=== PATIENT | male | born 1955 ===

== ENCOUNTER 2021-11-05 11:15 | Inpatient (IN) | payer OTHER ==
[~2021-11-05] VITALS: Ht 170.2 cm; Wt 75.5 kg
[~2021-11-05 11:15] MED LIST: COZAAR50 MG PO; LANTUS100 U/ML SC; NOVOLOG FLEX100 U/ML SC; PRAVASTATIN SOD40 MG PO
[2021-12-02] VITALS (14 sets, daily range): BP systolic 121–149; BP diastolic 43–81; PULSE 56–87; TEMP 97.3–99
[2021-12-02] MEDS ORDERED: GLUCOPHAGE500 MG/TAB PO (06:00)
[2021-12-02] MEDS ORDERED: HYGROTON 2525 MG/TAB PO (06:01)
[2021-12-02] MEDS ORDERED: COREG 25MG25 MG/TAB PO (06:02)
[2021-12-02] MEDS ORDERED: NORVASC 5MG5 MG/TAB PO (06:02)
[2021-12-02] MEDS ORDERED: VITAMIN D31000 I1 PO (06:03)
[2021-12-02] MEDS ORDERED: NOVOLOG 100U100 U/M1 SQ (06:04)
[2021-12-02] MEDS ORDERED: LEVEMIR100 U/ML SQ (06:05)
[2021-12-02] MEDS ORDERED: COZAAR100 MG PO (06:06)
[2021-12-02] MEDS ORDERED: HCTZ12.5TAB PO (12:04)
[2021-12-03 03:52] VITALS: BP 138/56; PULSE 70; TEMP 98.4
[2021-12-03 06:45] LABS: HEMOGLOBIN 11.3 g/dl (13.5-18.0)
[2021-12-03 06:49] LABS: HEMATOCRIT 33.4 % (42.0-52.0)
[2021-12-03 06:53] LABS: CALCIUM 8.1 mg/dL (8.4-10.2); CREATININE, serum 0.79 mg/dL (0.72-1.25); POTASSIUM 3.6 mmol/L (3.5-4.5)
[2021-12-03 07:33] VITALS: BP 141/58; PULSE 66; TEMP 97.7
[2021-12-03 12:00] VITALS: BP 149/55; PULSE 65; TEMP 97.7
== END 2021-12-03 13:00 | disposition home or self-care (01) | DRG 708 ==
LOC: INPTSU 12-02 05:26 → SURG 12-02 07:30
PROVIDERS: ADMIT Urology
PROC: 8E0W4CZ Robotic Assisted Procedure of Trunk Region, Percutaneous Endoscopic Approach (ICD-10-PCS; 2021-12-02)
PROC: 0VT04ZZ Resection of Prostate, Percutaneous Endoscopic Approach (ICD-10-PCS; principal; 2021-12-02 07:30)
DX: C61 Malignant neoplasm of prostate (principal); E11.9 Type 2 diabetes mellitus without complications; E78.00 Pure hypercholesterolemia, unspecified; I10 Essential (primary) hypertension; Z87.442 Personal history of urinary calculi
CPT/HCPCS: A4314; J0690; J1100; J1170; J1815; J1885; J2405; J2704; J3010; J7030; J7120